=== PATIENT | male | born 1975 | race Caucasian/White ===

== ENCOUNTER → 2021-11-18 15:40 | Outpatient (CLI) | payer OTHER ==
[~2021-11-18 15:40] MED LIST: CEFADROXIL500 MG PO; COZAAR100 MG; METOPROLOL SUCC50 MG
== END | disposition home or self-care (01) ==
LOC: PPH VACUNA 15:40
PROVIDERS: ATTEND Emergency Medicine Pediatric Emergency Medicine
DX: Z23 Encounter for immunization (principal)

== ENCOUNTER 2021-12-09 12:30 | Outpatient (CLI) | payer OTHER | END 2021-12-09 12:45 | disposition home or self-care (01) | LOC: PPH VACUNA 12:30 | PROVIDERS: ATTEND Emergency Medicine Pediatric Emergency Medicine | DX: Z23 Encounter for immunization (principal) ==

== ENCOUNTER 2022-04-08 08:28 | Outpatient (CLI) | payer OTHER | END 2022-04-08 08:29 | disposition home or self-care (01) | LOC: LAB 08:28 | PROVIDERS: ATTEND Internal Medicine | DX: E11.65 Type 2 diabetes mellitus with hyperglycemia (principal); E78.5 Hyperlipidemia, unspecified; I10 Essential (primary) hypertension; E03.8 Other specified hypothyroidism; E11.21 Type 2 diabetes mellitus with diabetic nephropathy ==

== ENCOUNTER 2022-07-29 08:39 | Outpatient (CLI) | payer OTHER | END 2022-07-29 08:40 | disposition home or self-care (01) | LOC: LAB 08:39 | PROVIDERS: ATTEND Internal Medicine | DX: E78.5 Hyperlipidemia, unspecified (principal); E11.65 Type 2 diabetes mellitus with hyperglycemia; I10 Essential (primary) hypertension ==

== ENCOUNTER → 2022-12-17 08:41 | Outpatient (CLI) | payer OTHER | END | disposition home or self-care (01) | LOC: LAB 08:41 | PROVIDERS: ATTEND Internal Medicine | DX: E11.65 Type 2 diabetes mellitus with hyperglycemia (principal); E78.5 Hyperlipidemia, unspecified; I10 Essential (primary) hypertension; E03.8 Other specified hypothyroidism ==

== ENCOUNTER 2023-07-24 08:43 | Outpatient (CLI) | payer OTHER | END 2023-07-24 08:45 | disposition home or self-care (01) | LOC: LAB 08:43 | PROVIDERS: ATTEND Internal Medicine | DX: I10 Essential (primary) hypertension (principal); E11.65 Type 2 diabetes mellitus with hyperglycemia; E78.2 Mixed hyperlipidemia; Z88.6 Allergy status to analgesic agent ==

== ENCOUNTER → 2023-10-29 09:25 | Outpatient (CLI) | payer OTHER ==
[2023-10-29 10:27] LABS: HEMATOCRIT 44.7 % (39.0-48.0); HEMOGLOBIN 14.9 g/dL (13-16.00); MEAN CELL VOLUME 81.7 fL (80.0-100.00); MEAN CORPUSCULAR HEMOGLOBIN 27.2 pg (27.00-32.0); MEAN CORPUSCULAR HGB CONC 33.3 g/dl (32.0-36.0); PLATELET COUNT 215 K/uL (150-450); RED BLOOD COUNT 5.48 M/uL (4.00-6.00); RED CELL DISTRIBUTION WIDTH 14.6 % (11.5-14.5)
[2023-10-29 11:09] LABS: ALBUMIN 4.1 gm/dL (3.4-5.0); BILIRUBIN TOTAL 0.76 mg/dL (0.3-1.2); CALCIUM 8.9 mg/dL (8.5-10.1); CHOL HDL RATIO 2.7 (0-5.0); CREATININE SERUM 0.76 mg/dL (0.70-1.30); GFR 110.42; GLOBULINA 3.9 G/DL (2.4-3.5); POTASSIUM 4.27 mEq/L (3.5-5.1); TSH 1.07 uIU/mL (0.358-3.74)
== END | disposition home or self-care (01) ==
LOC: LAB 09:25
PROVIDERS: ATTEND Internal Medicine
DX: E11.65 Type 2 diabetes mellitus with hyperglycemia (principal); E11.01 Type 2 diabetes mellitus with hyperosmolarity with coma; I10 Essential (primary) hypertension; E03.8 Other specified hypothyroidism; E78.5 Hyperlipidemia, unspecified

== ENCOUNTER → 2024-09-30 09:06 | Outpatient (CLI) | payer OTHER ==
[2024-09-30 09:54] LABS: HEMATOCRIT 45.4 % (39.0-48.0); HEMOGLOBIN 15.3 g/dL (13-16.00); MEAN CELL VOLUME 82.4 fL (80.0-100.00); MEAN CORPUSCULAR HEMOGLOBIN 27.8 pg (27.00-32.0); MEAN CORPUSCULAR HGB CONC 33.8 g/dl (32.0-36.0); PLATELET COUNT 210 K/uL (150-450); RED BLOOD COUNT 5.51 M/uL (4.00-6.00); RED CELL DISTRIBUTION WIDTH 14.4 % (11.5-14.5)
[2024-09-30 10:55] LABS: ALBUMIN 4.4 gm/dL (3.4-5.0); BILIRUBIN TOTAL 1.19 mg/dL (0.3-1.2); CALCIUM 9.4 mg/dL (8.5-10.1); CHOL HDL RATIO 2.8 (0-5.0); CREATININE SERUM 0.8 mg/dL (0.70-1.30); GFR 103.62; POTASSIUM 4.59 mEq/L (3.5-5.1); TOTAL PROTEIN 8.4 gm/dL (6.4-8.2)
== END | disposition home or self-care (01) ==
LOC: LAB 09:06
PROVIDERS: ATTEND Internal Medicine
DX: E11.65 Type 2 diabetes mellitus with hyperglycemia (principal); E03.8 Other specified hypothyroidism; E78.5 Hyperlipidemia, unspecified; I10 Essential (primary) hypertension; E11.21 Type 2 diabetes mellitus with diabetic nephropathy

== ENCOUNTER 2024-12-16 11:12 | Emergency (ER) | payer OTHER ==
[~2024-12-16] VITALS: Ht 177.8 cm; Wt 123.8 kg
[2024-12-16] MEDS ORDERED: XIGDUO XR 10 M1 EAC1 (11:25)
[2024-12-16] MEDS ORDERED: FAMOTIDINE/PF 20 MG/2 ML VIAL IV PUSH STA (12:19)
[2024-12-16] MEDS ORDERED: FAMOTIDINE/PF 20 MG/2 ML VIAL ONE (12:45)
== END 2024-12-16 13:03 | disposition home or self-care (01) ==
LOC: ER 11:14
DX: K21.9 Gastro-esophageal reflux disease without esophagitis (principal); Z88.6 Allergy status to analgesic agent; K29.60 Other gastritis without bleeding

== ENCOUNTER 2025-10-04 10:08 | Outpatient (CLI) | payer OTHER ==
[~2025-10-04 10:08] MED LIST changes: +XIGDUO XR 10 M1 EAC1
[2025-10-04 11:16] LABS: BASO % 0.5 % (0.1-1.2); EOS # 0.10 (0.04-0.54); EOS % 1.4 % (0.7-7.0); LYMPH # 2.23 (1.18-3.74); LYMPH % 30.4 % (19.3-53.1); MEAN PLATELET VOLUME 10.90 fl (9.4-12.4); MONO # 0.39 (0.24-0.82); MONO % 5.3 % (4.7-12.5); NEUT # 4.52 (1.56-6.13); NEUT % 61.6 % (34.0-71.1); RED CELL DISTRIBUTION WIDTH 13.5 % (11.6-14.4)
[2025-10-04 11:23] LABS: URINE APPEARANCE Clear; URINE BILIRRUBIN Negative (NEGATIVE); URINE BLOOD Negative; URINE COLOR Yellow; URINE KETONE Trace (NEGATIVE); URINE LEUKOCYTE Negative; URINE NITRATE Negative; URINE PROTEIN 30 (NEGATIVE); URINE UROBILINOGEN 0.2 E.U./dl
[2025-10-04 11:28] LABS: URINE BACTERIA 63.5 uL (0.0-1933); URINE RBC 2.0 uL (0.0-20.8); URINE WBC 2.6 uL (0.0-23.2)
[2025-10-04 11:30] LABS: URINE CAST 1.31 uL (0.0-1.40); URINE EPITHELIAL CELLS 1.3 uL (0.0-38.8); URINE GLUCOSE >=1000 MG/DL (NEGATIVE)
[2025-10-04 12:15] LABS: ALT/SGPT 41.0 U/L (12-78); AST/SGOT 17.0 U/L (15-37); BILIRUBIN TOTAL 1.25 mg/dL (0.3-1.2); BUN CREA RATIO 16.0 (7.0-25.0); CHOL HDL RATIO 2.8 (0-5.0); CREATININE SERUM 0.8 mg/dL (0.70-1.30); GFR 103.18; GLOBULINA 4.1 G/DL (2.4-3.5); GLUCOSE FASTING 110.0 mg/dL (65-100); HDL 58.0 mg/dl (40-60); LDL 70.0 mg/dl (0-130); OSMOLALITY SERUM 280.0 MOSM/KG (275-295); VLDL 32.0 (0-39)
== END 2025-10-04 10:09 | disposition home or self-care (01) ==
LOC: LAB 10:08
PROVIDERS: ATTEND Internal Medicine
DX: E11.65 Type 2 diabetes mellitus with hyperglycemia (principal); E78.5 Hyperlipidemia, unspecified; I10 Essential (primary) hypertension; E03.8 Other specified hypothyroidism